=== PATIENT | female | born 1970 | race Caucasian/White ===

== ENCOUNTER 2017-08-26 10:00 | Emergency (ER) | payer BC, MEDICARE ==
--- NOTE | 2017-08-26 10:22 | EDM.PDOC ---
ED HPI GENERAL MEDICAL PROBLEM - General Chief Complaint: Respiratory Problem Stated Complaint: CHEST PAIN Time Seen by Provider: 08/26/17 10:10 Source of Information: Reports: Patient, RN History Limitations: Reports: No Limitations - History of Present Illness INITIAL COMMENTS - FREE TEXT/NARRATIVE: 47 yr female presents with right sided chest pain, started at 1;30 am. This pain is intermittent and points to 3rd, 4th IC midline area where the pain is. States she did take some ASA at home. She has a history of Alpha 1 tripsen deficiency. She does have a port to the right upper chest. 10 Pain Score (Numeric/FACES): 10 - Related Data Allergies Allergy/AdvReac Type Severity Reaction Status Date / Time amlodipine [From Norvasc] Allergy Cannot Verified 08/26/17 10:20 Remember lisinopril Allergy Itching Verified 08/26/17 10:20 montelukast [From Singulair] Allergy Cannot Verified 08/26/17 10:20 Remember theophylline Allergy Nausea and Verified 08/26/17 10:20 Vomiting tramadol Allergy Cannot Verified 08/26/17 10:20 Remember Home Meds: Home Meds Budesonide/Formoterol [Symbicort 160-4.5 Mcg Inhaler] 2 puff INH BID 06/24/13 [ History] Metoprolol Succinate [Toprol XL] 50 mg PO BID 06/24/13 [History] Omeprazole 20 mg PO ACBREAKFAST 06/24/13 [History] Tiotropium [Spiriva Handihaler] 1 cap INH DAILY 06/24/13 [History] Acetaminophen/Codeine [Tylenol with Codeine No.3 300MG/30MG] 1 - 2 tab PO Q4H PRN 07/20/16 [History] Albuterol Sulfate 2.5 mg IH Q4HR PRN 07/20/16 [History] Wtyft-2-Ilmwisebak Inhibitor [Aralast C[employer] Administrator] 500 mg IV WEEKLY 07/20/16 [History] Losartan Potassium 25 mg PO DAILY 07/20/16 [History] Cyclobenzaprine HCl 10 mg pe PO TID 08/26/17 [History] Hydrochlorothiazide 25 mg PO DAILY 08/26/17 [History] Past Medical History HEENT History: Reports: Other (See Below) Other HEENT History: Right eye swallen shut from bug bite. - Edema to eye lid and right side face to ear. 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: Musculoskeletal History: Reports: Back Pain, Chronic Neurological History: Reports: None Psychiatric History: Reports: None Endocrine/Metabolic History: Reports: None Hematologic History: Reports: None Immunologic History: Reports: None Oncologic (Cancer) History: Reports: None Dermatologic History: Reports: None - Past Surgical History GI Surgical History: Reports: Appendectomy Female Surgical History: Reports: Hysterectomy Social & Family History - Family History Family Medical History: Noncontributory - Caffeine Use Caffeine Use: Reports: None ED ROS GENERAL - Review of Systems Review Of Systems: See Below Constitutional: Reports: No Symptoms HEENT: Reports: No Symptoms Respiratory: Reports: No Symptoms Cardiovascular: Reports: Chest Pain GI/Abdominal: Reports: No Symptoms : Reports: No Symptoms Musculoskeletal: Reports: Other (history of back pain) Skin: Reports: No Symptoms Neurological: Reports: No Symptoms Psychiatric: Reports: No Symptoms ED EXAM, GENERAL - Physical Exam Exam: See Below Exam Limited By: No Limitations General Appearance: Alert, No Apparent Distress Ears: Hearing Grossly Normal Nose: Normal Inspection Throat/Mouth: Normal Inspection, No Airway Compromise Head: Atraumatic, Normocephalic Neck: Normal Inspection, Supple, Non-Tender Respiratory/Chest: Lungs Clear, Decreased Breath Sounds Cardiovascular: Normal Peripheral Pulses, Regular Rate, Rhythm, No Edema GI/Abdominal: Soft, Non-Tender (Female) Exam: Deferred Rectal (Female) Exam: Deferred Back Exam: Normal Inspection Extremities: Normal Inspection, Normal Range of Motion, Normal Capillary Refill Neurological: Alert, Oriented, Normal Cognition, Normal Gait Psychiatric: Normal Affect, Normal Mood Skin Exam: Warm, Dry, Normal Color Lymphatic: No Adenopathy Course - Vital Signs Last Recorded V/S: Last Vital Signs Temp 98 F 08/26/17 10:34 Pulse 84 08/26/17 10:34 Resp 20 08/26/17 10:34 BP 125/82 08/26/17 10:34 Pulse Ox 100 08/26/17 10:34 - Orders/Labs/Meds Labs: Laboratory Tests 08/26/17 08/26/17 08/26/17 Range/Units 10:30 10:30 10:30 WBC 8.7 (4.0-11.0) K/uL RBC 3.48 L (3.80-5.80) M/uL Hgb 11.2 L (11.5-16.5) g/dL Hct 33.9 L (37.0-47.0) % MCV 97 H (76-96) fL MCH 32.2 H (27.0-32.0) pg MCHC 33.0 (31.0-35.0) g/dL RDW 12.7 (11.0-16.0) % Plt Count 223 D (150-500) K/uL MPV 9.4 (6.0-10.0) fL Neut % (Auto) 64.2 (45.0-70.0) % Lymph % (Auto) 23.1 (20.0-40.0) % [place] % (Auto) 10.6 H (3.0-10.0) % Eos % (Auto) 1.8 (1.0-5.0) % Baso % (Auto) 0.3 (0.0-0.5) % Neut # (Auto) 5.59 (2.00-7.50) K/uL Lymph # (Auto) 2.01 (1.50-4.00) K/uL [place] # (Auto) 0.92 H (0.20-0.80) K/uL Eos # (Auto) 0.16 (0.04-0.40) K/uL Baso # (Auto) 0.03 (0.02-0.10) K/uL D-Dimer, Quantitative (0-400) ng/mL Sodium 140 (136-145) mmol/L Potassium 3.8 (3.5-5.1) mmol/L Chloride 103 (98-107) mmol/L Carbon Dioxide 27.2 (21.0-32.0) mmol/L Anion Gap 13.6 (5.0-15.0) mmol/L BUN 12 D (8-26) mg/dL Creatinine 1.22 H D (0.55-1.02) mg/dL Est Cr Clr Drug Dosing 3.91 mL/min Estimated GFR (MDRD) 48 L (>60) MLS/MIN BUN/Creatinine Ratio 9.8 (6-25) Glucose 101 H (74-100) mg/dL Calcium 8.8 (8.5-10.1) mg/dL Total Bilirubin 0.5 (0.0-1.0) mg/dL AST 26 (15-37) U/L ALT 25 (12-78) U/L Alkaline Phosphatase 49 (46-116) U/L Troponin I < 0.017 (0.000-0.060) ng/mL Total Protein 7.0 (6.4-8.2) g/dL Albumin 3.5 (3.4-5.0) g/dL Globulin 3.5 (2.2-4.2) g/dL Albumin/Globulin Ratio 1.0 (0.8-2.0) 05//18 Range/Units 10:40 WBC (4.0-11.0) K/uL RBC (3.80-5.80) M/uL Hgb (11.5-16.5) g/dL Hct (37.0-47.0) % MCV (76-96) fL MCH (27.0-32.0) pg MCHC (31.0-35.0) g/dL RDW (11.0-16.0) % Plt Count (150-500) K/uL MPV (6.0-10.0) fL Neut % (Auto) (45.0-70.0) % Lymph % (Auto) (20.0-40.0) % [place] % (Auto) (3.0-10.0) % Eos % (Auto) (1.0-5.0) % Baso % (Auto) (0.0-0.5) % Neut # (Auto) (2.00-7.50) K/uL Lymph # (Auto) (1.50-4.00) K/uL [place] # (Auto) (0.20-0.80) K/uL Eos # (Auto) (0.04-0.40) K/uL Baso # (Auto) (0.02-0.10) K/uL D-Dimer, Quantitative 178 (0-400) ng/mL Sodium (136-145) mmol/L Potassium (3.5-5.1) mmol/L Chloride (98-107) mmol/L Carbon Dioxide (21.0-32.0) mmol/L Anion Gap (5.0-15.0) mmol/L BUN (8-26) mg/dL Creatinine (0.55-1.02) mg/dL Est Cr Clr Drug Dosing mL/min Estimated GFR (MDRD) (>60) MLS/MIN BUN/Creatinine Ratio (6-25) Glucose (74-100) mg/dL Calcium (8.5-10.1) mg/dL Total Bilirubin (0.0-1.0) mg/dL AST (15-37) U/L ALT (12-78) U/L Alkaline Phosphatase (46-116) U/L Troponin I (0.000-0.060) ng/mL Total Protein (6.4-8.2) g/dL Albumin (3.4-5.0) g/dL Globulin (2.2-4.2) g/dL Albumin/Globulin Ratio (0.8-2.0) - Re-Assessments/Exams Free Text/Narrative Re-Assessment/Exam: 08/26/17 12:17 47 yr female is having this right sided, pointed area of pain, intermittently, probably costochondritis. Recommend Ibuprofen or Aleve and continue with home medications. Support area with change of position. Apply ice or heat to area for about 20 min up to 5x/day. Follow-up in clinic next week. She did mention she has some concern of PE because she does home infusions. She states no concern of heart problems at this time. States she did do some extra long driving, did some lawn mowing and did some jesi. 08/27/17 13:34 LE Reviewed lab results with pt and chest x-ray, no obvious concerns. Recommend F/ U with PCP in next week or return to ER or clinic sooner if symptoms worsen. D- dimer and troponins are negative. Pt has been having these symptoms since 1:30 am, troponins should be elevated at this time. Pt discharged to self care. Offered pain medication several times and pt wants to drive herself home and refused any pain medication at this time. She will take Ibuprofen when she gets home. 08/27/17 13:39 LE Pt did have some concerns of upper GI reflux and heartburn. Will increase Prilosec to bid and recommend F/U w PCP for more work-up of this, if symptoms persist. Departure - Departure Time of Disposition: 13:00 Disposition: Home, Self-Care 01 Condition: Good Clinical Impression: Rib pain on right side - Discharge Information Instructions: Costochondritis, [id number], Ibuprofen tablets and capsules, Naproxen and naproxen sodium oral immediate-release tablets Referrals: Dion Wei MD [Primary Care Provider] - Forms: ED Department Discharge Care Plan Goals: Increase prilosec to 2 x day, take aleve 2 x day or motrin 400mg 3 x day. Ice or warm pack (wichever reliievs discomfort more) to area to area 20 minutes 5 x day as needed.
[2017-08-26 10:37] VITALS: BP 125/82
--- NOTE | 2017-08-26 17:28 | CR ---
DATE OF SERVICE: 08/26/17 CLINICAL DATA: right sided chest pain PA AND LATERAL CHEST: Comparison is made to a prior exam dated 09/28/10. There is a right-sided Jose L-Cath in place with its distal tip in the region of the right atrium. The heart size is normal. There are linear densities in both lung bases consistent with linear atelectasis or fibrosis. The lungs are otherwise clear. No pneumothorax. No pleural effusions. No areas of consolidation. [id number] [facility]
== END 2017-08-26 13:00 | disposition home or self-care (01) ==
LOC: LB.ED 10:00
DX: R07.81 Pleurodynia (principal); Z88.8 Allergy status to other drugs, medicaments and biological substances; Z88.5 Allergy status to narcotic agent; Z79.899 Other long term (current) drug therapy
CPT/HCPCS: 36415; 71046; 80053; 84484; 85025; 85379; 93005; 99283; 99285-25

== ENCOUNTER 2018-07-15 22:28 | Emergency (ER) | payer BC, MEDICARE ==
[2018-07-15] MEDS ORDERED: Ketorolac 30 MG/ML SDV IM ONE (22:51)
--- NOTE | 2018-07-15 22:57 | EDM.PDOC ---
ED HPI GENERAL MEDICAL PROBLEM - General Chief Complaint: General Stated Complaint: ABD PAIN Time Seen by Provider: 07/15/18 23:00 Source of Information: Reports: Patient History Limitations: Reports: No Limitations - History of Present Illness INITIAL COMMENTS - FREE TEXT/NARRATIVE: This patient presents to the ED for evaluation of pain. She states she had a sudden onset of sharp left back pain, just under her ribs. She has a history of kidney stones as well as other health problems. She denies dysuria, urgency, frequency, or right sided back pain. She states she had some nausea when the pain began but did not vomiting. She has not had a fever, recent illness, and denies other concerns or complaints. - Related Data Allergies Allergy/AdvReac Type Severity Reaction Status Date / Time amlodipine [From Norvasc] Allergy Cannot Verified 07/15/18 23:15 Remember lisinopril Allergy Itching Verified 07/15/18 23:15 montelukast [From Singulair] Allergy Cannot Verified 07/15/18 23:15 Remember theophylline Allergy Nausea and Verified 07/15/18 23:15 Vomiting tramadol Allergy Cannot Verified 07/15/18 23:15 Remember Home Meds: Home Meds Budesonide/Formoterol [Symbicort 160-4.5 Mcg Inhaler] 2 puff INH BID 06/24/13 [ History] Metoprolol Succinate [Toprol XL] 50 mg PO BID 06/24/13 [History] Omeprazole 20 mg PO ACBREAKFAST 06/24/13 [History] Tiotropium [Spiriva Handihaler] 1 cap INH DAILY 06/24/13 [History] Acetaminophen/Codeine [Tylenol with Codeine No.3 300MG/30MG] 1 - 2 tab PO Q4H PRN 07/20/16 [History] Albuterol Sulfate 2.5 mg IH Q4HR PRN 07/20/16 [History] Pirya-6-Pqjbgtiajp Inhibitor [Aralast Associate Automation Engineer] 500 mg IV WEEKLY 07/20/16 [History] Losartan Potassium 25 mg PO DAILY 07/20/16 [History] Cyclobenzaprine HCl 10 mg pe PO TID 08/26/17 [History] hydroCHLOROthiazide [Hydrochlorothiazide] 25 mg PO DAILY 08/26/17 [History] Lidocaine 1 patch TD ASDIRECTED 07/15/18 [History] Past Medical History HEENT History: Reports: Other (See Below) Other HEENT History: Right eye swallen shut from bug bite. - Edema to eye lid and right side face to ear. 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 Musculoskeletal History: Reports: Back Pain, Chronic Neurological History: Reports: None Psychiatric History: Reports: None Endocrine/Metabolic History: Reports: None Hematologic History: Reports: None Immunologic History: Reports: None Oncologic (Cancer) History: Reports: None Dermatologic History: Reports: None - Past Surgical History GI Surgical History: Reports: Appendectomy Female Surgical History: Reports: Hysterectomy Social & Family History - Family History Family Medical History: Noncontributory - Caffeine Use Caffeine Use: Reports: None ED ROS GENERAL - Review of Systems Review Of Systems: See Below Constitutional: Denies: Fever HEENT: Reports: No Symptoms Respiratory: Denies: Shortness of Breath, Cough Cardiovascular: Denies: Chest Pain, Lightheadedness Endocrine: Reports: No Symptoms GI/Abdominal: Reports: Nausea. Denies: Abdominal Pain, Vomiting : Reports: Flank Pain. Denies: Dysuria, Frequency, Hematuria, Urgency Musculoskeletal: Reports: No Symptoms Skin: Reports: No Symptoms Neurological: Reports: No Symptoms ED EXAM, GENERAL - Physical Exam Exam: See Below Exam Limited By: No Limitations General Appearance: Alert, WD/WN, No Apparent Distress Eye Exam: Bilateral Eye: PERRL Ears: Normal External Exam Nose: Normal Inspection Throat/Mouth: Normal Inspection Head: Atraumatic, Normocephalic Neck: Normal Inspection, Supple, Non-Tender, Full Range of Motion Respiratory/Chest: No Respiratory Distress, Lungs Clear, Normal Breath Sounds, No Accessory Muscle Use Cardiovascular: Regular Rate, Rhythm GI/Abdominal: Soft, Non-Tender, No Organomegaly Back Exam: CVA Tenderness (L) Extremities: Normal Range of Motion Neurological: Alert, Oriented Psychiatric: Normal Affect, Normal Mood Skin Exam: Warm, Dry Course - Vital Signs Last Recorded V/S: Last Vital Signs Temp 36.6 C 07/15/18 22:35 Pulse 99 07/15/18 22:35 Resp 20 07/15/18 22:35 BP 100/48 L 07/15/18 22:35 Pulse Ox 94 L 07/15/18 22:35 - Orders/Labs/Meds Orders: Active Orders 24 hr Category Date Time Status Abdomen Pelvis wo Cont [CT] Stat Exams 07/15/18 23:28 Ordered Labs: Laboratory Tests 07/15/18 Range/Units 22:57 Urine Color Yellow Urine Appearance Clear (CLEAR) Urine pH 5.5 (5.0-8.0) Ur Specific [place] <= 1.005 (1.003-1.030) Urine Protein Negative (NEGATIVE) mg/dL Urine Glucose (UA) Negative (NEGATIVE) mg/dL Urine Ketones Negative (NEGATIVE) mg/dL Urine Occult Blood Negative (NEGATIVE) Urine Nitrite Negative (NEGATIVE) Urine Bilirubin Negative (NEGATIVE) Urine Urobilinogen 0.2 (0.2-1.0) E.U./dL Ur Leukocyte Esterase Negative (NEGATIVE) Meds: Medications Discontinued Medications Generic Name Dose Route Start Last Admin Trade Name Freq PRN Reason Stop Dose Admin Ketorolac Tromethamine 30 mg 07/15/18 22:51 07/15/18 22:52 Toradol IM 07/15/18 22:52 30 mg ONETIME ONE Administration - Re-Assessments/Exams Free Text/Narrative Re-Assessment/Exam: 07/16/18 01:14 This patient presents with back pain as detailed above. A broad differential diagnosis was considered including, gall bladder disease, pancreatitis, diverticular disease, bowel obstruction, volvulus, intussusception, gastritis and peptic ulcer disease, gastro intestinal infection, inflammatory bowel disease, peritonitis, kidney stones, UTI, mesenteric lymphadenopathy, IBS. The workup in the ED is at this point negative. No definitive etiology for the patients pain is found at this point and my suspicion of an intraabdominal catastrophe or other worrisome etiology is low. Imaging studies show no acute findings. Cardiac etiologies unlikely as supported by H & P. At this time there is no indication for admission for serial exams and further workup. Patient is hemodynamically stable in the ED. She did not achieve good pain management with Toradol; however, refused narcotic medications and opted for supportive care with heat. Plan is home with 12 hour abdominal pain recheck by primary care physician or return to UR/ED at that time. Return for fevers greater than 102, increasing pain, other new symptoms develop. Abdominal pain instructions given to patient. She was given a prescription for Percocet should she choose to use them. Questions were answered. Departure - Departure Time of Disposition: 01:10 Disposition: Home, Self-Care 01 Clinical Impression: Back pain - Discharge Information *PRESCRIPTION DRUG MONITORING PROGRAM REVIEWED*: No *COPY OF PRESCRIPTION DRUG MONITORING REPORT IN PATIENT PIO: No Referrals: PCP,None [Ordering Only Provider] - Forms: ED Department Discharge Additional Instructions: Take provided Percocet as directed: 0.5-1 tablet by mouth every 4-6 hours as needed for pain. Diet and activity as tolerated. Continue all previously prescribed medications. May apply heat or cold to affected area intermittently to help with pain relief. Follow up with regular providers as needed. Call with any questions. - My Orders Last 24 Hours: My Active Orders 07/15/18 23:28 Abdomen Pelvis wo Cont [CT] Stat - Assessment/Plan Last 24 Hours: My Active Orders 07/15/18 23:28 Abdomen Pelvis wo Cont [CT] Stat
[2018-07-15 23:20] VITALS: BP 100/48
[2018-07-15] MEDS ORDERED: Acetaminophen/oxyCODONE 325-5 MG Tab ONE (23:30)
--- NOTE | 2018-07-16 15:49 | PCM.SN ---
- Free Text/Narrative Note: Lab notified provider that urine was significant for microorganisms; culture ordered. I contacted the patient at home who was doing some better with the pain. I explained the findings to her. She denies having any symptoms including fever, dysuria, urgency or frequency. Given this, I will await final culture and sensitivities before prescribing treatment. I will contact the patient in 24 hours.
--- NOTE | 2018-07-17 05:28 | CT ---
DATE OF SERVICE: 07/15/18 CLINICAL DATA: Left cva pain. UNENHANCED ABDOMEN AND PELVIC CT: Multislice acquisition through the abdomen and pelvis without IV or oral contrast was performed. Comparison is made to a prior unenhanced abdomen and pelvic CT dated 01/30/15. There are linear densities in both lung bases consistent with linear atelectasis or fibrosis. There are also emphysematous changes in both lower lungs. The unenhanced liver is fractionally visualized. No focal abnormalities within the visualized liver. The gallbladder is contracted. No calcified gallstones. There is a small hiatal hernia. There is gas noted in the distal esophagus, most likely related to GE reflux. The stomach is moderately distended with mixed density material, which is most likely ingested food. I cannot exclude a gastric outlet obstructive process. The spleen appears normal. The pancreas appears normal. The right and left adrenals appear normal. The right and left kidneys appear normal. No nephrocalcinosis or nephrolithiasis. No hydronephrosis or hydroureter. The bladder is fluid filled and appears normal. The patient is status post hysterectomy. No evidence of appendicitis. There is a moderate amount of stool present in the ascending and transverse colon. No free air. No free fluid. No dilated loops of bowel. No adenopathy. No aortic aneurysm. IMPRESSION: Findings as discussed above. [id number] [facility]
== END 2018-07-16 01:02 | disposition home or self-care (01) ==
LOC: LB.ED 22:28
DX: M54.9 Dorsalgia, unspecified (principal); J44.9 Chronic obstructive pulmonary disease, unspecified; Z88.8 Allergy status to other drugs, medicaments and biological substances; Z88.5 Allergy status to narcotic agent; Z79.899 Other long term (current) drug therapy
CPT/HCPCS: 74176; 81003; 87086; 87088; 87186; 96372; 99284-25; A9270-GY; J1885

== ENCOUNTER 2018-11-18 09:37 | Emergency (ER) | payer BC, MEDICARE ==
[2018-11-18] MEDS ORDERED: diphenhydrAMINE 50 MG/ML SDV IVPUSH ONE (10:04)
[2018-11-18] MEDS ORDERED: Ketorolac 30 MG/ML SDV IVPUSH ONE (10:04)
[2018-11-18] MEDS ORDERED: Promethazine 12.5 MG in Sodium Chloride 0.9% 50 ML IV PRN (10:04)
--- NOTE | 2018-11-18 10:11 | EDM.PDOC ---
ED HPI GENERAL MEDICAL PROBLEM - General Chief Complaint: General Stated Complaint: Headache Time Seen by Provider: 11/18/18 10:00 Source of Information: Reports: Patient History Limitations: Reports: No Limitations - History of Present Illness INITIAL COMMENTS - FREE TEXT/NARRATIVE: This patient presents to the ED for evaluation of a migraine headache. She states the headache started 2 days ago and she went to her chiropractor yesterday for a neck adjustment to treat it. This did not help and she states the headache is worse today. She states it is "all over her head" and "much worse" than her typical migraines. She tried acetaminophen with codeine and states that did not help. She has not taken any other medications for her headache but states she did restart her prednisone because she thinks her lungs are "acting up." She is complaining of nausea and photophobia with this headache. She denies a recent history of trauma. Onset: Gradual Onset Date: 11/16/18 Onset Time: 12:00 Duration: Getting Worse Location: Reports: Head Quality: Reports: Throbbing Severity: Severe Improves with: Reports: None Worsens with: Reports: None Associated Symptoms: Reports: Nausea/Vomiting Treatments INTENSIVE CARE NURSE: Reports: Other (see below) (acetaminophen with codeine) - Related Data Allergies Allergy/AdvReac Type Severity Reaction Status Date / Time amlodipine [From Norvasc] Allergy Cannot Verified 11/18/18 09:56 Remember lisinopril Allergy Itching Verified 11/18/18 09:56 montelukast [From Singulair] Allergy Cannot Verified 11/18/18 09:56 Remember theophylline Allergy Nausea and Verified 11/18/18 09:56 Vomiting tramadol Allergy Rash Verified 11/18/18 09:56 Home Meds: Home Meds Budesonide/Formoterol [Symbicort 160-4.5 Mcg Inhaler] 2 puff INH BID 06/24/13 [ History] Metoprolol Succinate [Toprol XL] 50 mg PO BID 06/24/13 [History] Omeprazole 20 mg PO ACBREAKFAST 06/24/13 [History] Tiotropium [Spiriva Handihaler] 1 cap INH DAILY 06/24/13 [History] Acetaminophen/Codeine [Tylenol with Codeine No.3 300MG/30MG] 1 - 2 tab PO Q4H PRN 07/20/16 [History] Albuterol Sulfate 2.5 mg IH Q4HR PRN 07/20/16 [History] Bpdww-2-Jqfhohioun Inhibitor [Aralast Private Secretary] 500 mg IV WEEKLY 07/20/16 [History] Losartan Potassium 25 mg PO DAILY 07/20/16 [History] Cyclobenzaprine HCl 10 mg pe PO TID 08/26/17 [History] hydroCHLOROthiazide [Hydrochlorothiazide] 25 mg PO DAILY 08/26/17 [History] Lidocaine 1 patch TD ASDIRECTED 07/15/18 [History] Past Medical History HEENT History: Reports: Other (See Below) Other HEENT History: Right eye swallen shut from bug bite. - Edema to eye lid and right side face to ear. 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 Musculoskeletal History: Reports: Back Pain, Chronic Neurological History: Reports: None Psychiatric History: Reports: None Endocrine/Metabolic History: Reports: None Hematologic History: Reports: None Immunologic History: Reports: None Oncologic (Cancer) History: Reports: None Dermatologic History: Reports: None - Past Surgical History GI Surgical History: Reports: Appendectomy Female Surgical History: Reports: Hysterectomy Social & Family History - Family History Family Medical History: Noncontributory - Caffeine Use Caffeine Use: Reports: None ED ROS GENERAL - Review of Systems Review Of Systems: See Below Constitutional: Reports: Decreased Appetite. Denies: Fever HEENT: Reports: No Symptoms Respiratory: Reports: No Symptoms, Other (states her lungs are "acting up" ) GI/Abdominal: Reports: Nausea. Denies: Abdominal Pain, Diarrhea, Vomiting Musculoskeletal: Reports: No Symptoms Skin: Reports: No Symptoms Neurological: Reports: Headache ED EXAM, GENERAL - Physical Exam Exam: See Below Exam Limited By: No Limitations General Appearance: Alert, No Apparent Distress Eye Exam: Bilateral Eye: PERRL Ears: Normal External Exam Nose: Normal Inspection Throat/Mouth: Normal Inspection Head: Atraumatic, Normocephalic Neck: Normal Inspection, Full Range of Motion Respiratory/Chest: No Respiratory Distress, Lungs Clear, Normal Breath Sounds Cardiovascular: Regular Rate, Rhythm Extremities: Normal Inspection Neurological: Alert, Oriented, Normal Cognition Psychiatric: Normal Affect, Normal Mood Skin Exam: Warm, Dry Course - Vital Signs Last Recorded V/S: Last Vital Signs Temp 36.2 C 11/18/18 10:41 Pulse 86 11/18/18 10:41 Resp 17 11/18/18 10:41 BP 119/71 11/18/18 10:41 Pulse Ox 96 11/18/18 10:41 - Orders/Labs/Meds Orders: Active Orders 24 hr Category Date Time Status Promethazine [Phenergan] 12.5 mg Med 11/18/18 10:04 Active Sodium Chloride 0.9% [Normal Saline] 50 ml IV Q6H Sodium Chloride 0.9% [Normal Saline] 1,000 ml Med 11/18/18 10:15 Active IV ASDIRECTED Medication Orders Promethazine HCl 12.5 mg/ (Sodium Chloride) 50.5 mls @ 200 mls/hr IV Q6H PRN PRN Reason: Nausea/Vomiting Last Admin: 11/18/18 10:55 Dose: 200 mls/hr Sodium Chloride (Normal Saline) 1,000 mls @ 1,000 mls/hr IV ASDIRECTED JONATHAN Last Admin: 11/18/18 10:29 Dose: 1,000 mls/hr Meds: Medications Generic Name Dose Route Start Last Admin Trade Name Freq PRN Reason Stop Dose Admin Promethazine HCl 12.5 mg/ 50.5 mls @ 200 mls/hr 11/18/18 10:04 11/18/18 10:55 Sodium Chloride IV 200 mls/hr Q6H PRN Administration Nausea/Vomiting Sodium Chloride 1,000 mls @ 1,000 mls/hr 11/18/18 10:15 11/18/18 10:29 Normal Saline IV 1,000 mls/hr ASDIRECTED JONATHAN Administration Discontinued Medications Generic Name Dose Route Start Last Admin Trade Name Freq PRN Reason Stop Dose Admin Diphenhydramine HCl 50 mg 11/18/18 10:04 11/18/18 10:35 Benadryl IVPUSH 11/18/18 10:05 50 mg ONETIME ONE Administration Diphenhydramine HCl Confirm 11/18/18 10:40 11/18/18 10:50 Benadryl Administered 11/18/18 10:41 Not Given Dose 50 mg .ROUTE .STK-MED ONE Ketorolac Tromethamine 30 mg 11/18/18 10:04 11/18/18 10:41 Toradol IVPUSH 11/18/18 10:05 30 mg ONETIME ONE Administration Ketorolac Tromethamine Confirm 11/18/18 10:39 11/18/18 10:39 Toradol Administered 11/18/18 10:40 Not Given Dose 30 mg .ROUTE .STK-MED ONE Promethazine HCl Confirm 11/18/18 10:40 11/18/18 10:50 Phenergan Administered 11/18/18 10:41 Not Given Dose 25 mg .ROUTE .STK-MED ONE - Re-Assessments/Exams Free Text/Narrative Re-Assessment/Exam: 11/18/18 11:53 This patient presents to the ED with a report of migraine headache. She denies any new symptoms and attempted some of her usual treatments prior to arrival without success. The examination was found to be normal except for photophobia. Specifically, there was a non-focal neurologic exam and no signs concerning to infectious etiologies. Clinically the life threatening diagnosis of SAH and meningitis/encephalitis were excluded. I also had no concerns for metabolic disorders which may produce a headache. After interventions as shown above, she reported good improvement and was able to be discharged to home. The patient was instructed to follow up with her primary care provider in 2-3 days to re-evaluate this episode and the current treatment regimen. She was reminded to return immediately if any worsening or new symptoms develop. She was in complete understanding and agreement with this plan and at the time of discharge had no further concerns or complaints. Departure - Departure Time of Disposition: 12:00 Disposition: Home, Self-Care 01 Condition: Good, Fair Clinical Impression: Headache - Discharge Information *PRESCRIPTION DRUG MONITORING PROGRAM REVIEWED*: Yes *COPY OF PRESCRIPTION DRUG MONITORING REPORT IN PATIENT PIO: No Instructions: Recurrent Migraine Headache, [id number] Referrals: PCP,None [Primary Care Provider] - Forms: ED Department Discharge - My Orders Last 24 Hours: My Active Orders 11/18/18 10:04 Promethazine [Phenergan] 12.5 mg Sodium Chloride 0.9% [Normal Saline] 50 ml IV Q6H 11/18/18 10:15 Sodium Chloride 0.9% [Normal Saline] 1,000 ml IV ASDIRECTED - Assessment/Plan Last 24 Hours: My Active Orders 11/18/18 10:04 Promethazine [Phenergan] 12.5 mg Sodium Chloride 0.9% [Normal Saline] 50 ml IV Q6H 11/18/18 10:15 Sodium Chloride 0.9% [Normal Saline] 1,000 ml IV ASDIRECTED
[2018-11-18] MEDS ORDERED: Sodium Chloride 0.9% 1,000 ML IV SCH (10:15)
[2018-11-18] MEDS ORDERED: Ketorolac 30 MG/ML SDV ONE (10:39)
[2018-11-18] MEDS ORDERED: Promethazine 25 MG/ML SDV ONE (10:40)
[2018-11-18] MEDS ORDERED: diphenhydrAMINE 50 MG/ML SDV ONE (10:40)
[2018-11-18 11:20] VITALS: BP 119/71; PULSE 86
== END 2018-11-18 12:05 | disposition home or self-care (01) ==
LOC: LB.ED 09:37
DX: R51 Headache (principal); J44.9 Chronic obstructive pulmonary disease, unspecified; K21.9 Gastro-esophageal reflux disease without esophagitis; Z88.5 Allergy status to narcotic agent; Z88.8 Allergy status to other drugs, medicaments and biological substances; Z79.899 Other long term (current) drug therapy
CPT/HCPCS: 96365; 96375; 99282; J1200; J1885; J2550; J7030; J7050

== ENCOUNTER → 2019-02-08 | Outpatient (CLI) | payer BC, MEDICARE | LOC: LB.CLINIC 13:39 | PROVIDERS: ATTEND Family Medicine | DX: I10 Essential (primary) hypertension (principal) | CPT/HCPCS: 36415; 80048 ==

== ENCOUNTER → 2019-03-20 | Outpatient (CLI) | payer BC, MEDICARE ==
--- NOTE | 2019-03-20 12:36 | CR ---
DATE OF SERVICE: 03/20/2019 CLINICAL DATA: Unspecified asthma, uncomplicated,Chronic obstructive pulmonary disease, un. PA AND LATERAL CHEST: Comparison is made to a prior exam dated 01/12/2019. The heart size is normal. The right-sided Port-A-Cath is unchanged in position. The lungs remain hyperexpanded. There are linear densities in both lower lungs consistent with linear atelectasis or fibrosis. The lungs are otherwise clear. No pneumothorax. No pleural effusions. [id number] [facility]
== END ==
LOC: LB.CLINIC 07:01
PROVIDERS: ATTEND Family Medicine
DX: J44.9 Chronic obstructive pulmonary disease, unspecified (principal); R09.89 Other specified symptoms and signs involving the circulatory and respiratory systems
CPT/HCPCS: 71046

== ENCOUNTER 2019-03-21 11:19 | Emergency (ER) | payer BC, MEDICARE ==
--- NOTE | 2019-03-21 11:48 | EDM.PDOC ---
ED HPI GENERAL MEDICAL PROBLEM - General Chief Complaint: Respiratory Problem Stated Complaint: CAN'T BREATH Time Seen by Provider: 03/21/19 11:30 Source of Information: Reports: Patient, RN - History of Present Illness INITIAL COMMENTS - FREE TEXT/NARRATIVE: 48 yr old female presents with shortness of breath and some chest discomfort. She has been using her inhalers, prednisone and did have Solu-Medrol 250 mg IM yesterday in the clinic. States she did have her teeth cleaned about 1 month ago and dentist did extract right lower tooth and was traumatic and was started on Penicillin at that time. She continue with some tenderness to tooth area. Significant hx of Alpha one antitrypsin deficiency. Leukocytosis may be some related to the Solu-Medrol. Diminished breath sounds to LLL. SpO2 88% with ambulation. She has been using the oxygen continuous at home and usually uses this just at hs. She does have a pulmonology appointment tomorrow. Treatments TURF KEEPER: Reports: Other (see below) Other Treatments TURF KEEPER: vicks. - Related Data Allergies Allergy/AdvReac Type Severity Reaction Status Date / Time amlodipine [From Norvasc] Allergy Cannot Verified 11/18/18 09:56 Remember lisinopril Allergy Itching Verified 11/18/18 09:56 montelukast [From Singulair] Allergy Cannot Verified 11/18/18 09:56 Remember theophylline Allergy Nausea and Verified 11/18/18 09:56 Vomiting tramadol Allergy Rash Verified 11/18/18 09:56 Home Meds: Home Meds Budesonide/Formoterol [Symbicort 160-4.5 Mcg Inhaler] 2 puff INH BID 06/24/13 [ History] Metoprolol Succinate [Toprol XL] 50 mg PO BID 06/24/13 [History] Omeprazole 20 mg PO ACBREAKFAST 06/24/13 [History] Tiotropium [Spiriva Handihaler] 1 cap INH DAILY 06/24/13 [History] Acetaminophen/Codeine [Tylenol with Codeine No.3 300MG/30MG] 1 - 2 tab PO Q4H PRN 07/20/16 [History] Albuterol Sulfate 2.5 mg IH Q4HR PRN 07/20/16 [History] Hsfed-8-Ehqosyvepk Inhibitor [Aralast Fitness Club Manager] 500 mg IV WEEKLY 07/20/16 [History] Losartan Potassium 25 mg PO DAILY 07/20/16 [History] Cyclobenzaprine HCl 10 mg pe PO TID 08/26/17 [History] hydroCHLOROthiazide [Hydrochlorothiazide] 25 mg PO DAILY 08/26/17 [History] Lidocaine 1 patch TD ASDIRECTED 07/15/18 [History] Past Medical History HEENT History: Reports: Other (See Below) Other HEENT History: Right eye swallen shut from bug bite. - Edema to eye lid and right side face to ear. 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 Musculoskeletal History: Reports: Back Pain, Chronic Neurological History: Reports: None Psychiatric History: Reports: None Endocrine/Metabolic History: Reports: None Hematologic History: Reports: None Immunologic History: Reports: None Oncologic (Cancer) History: Reports: None Dermatologic History: Reports: None - Past Surgical History GI Surgical History: Reports: Appendectomy Female Surgical History: Reports: Hysterectomy Social & Family History - Family History Family Medical History: Noncontributory - Caffeine Use Caffeine Use: Reports: None ED ROS GENERAL - Review of Systems Review Of Systems: See Below Constitutional: Reports: Weakness. Denies: Fever, Chills HEENT: Reports: No Symptoms Respiratory: Reports: Shortness of Breath, Cough, Sputum Cardiovascular: Reports: Dyspnea on Exertion, Lightheadedness GI/Abdominal: Reports: Other (abdominal fullness). Denies: Hematochezia, Melena : Reports: No Symptoms Skin: Reports: Dryness. Denies: Bruising, Pruritis Psychiatric: Reports: No Symptoms ED EXAM, GENERAL - Physical Exam Exam: See Below Exam Limited By: No Limitations General Appearance: Alert, No Apparent Distress Eye Exam: Bilateral Eye: PERRL Ears: Hearing Grossly Normal Nose: Normal Inspection Throat/Mouth: Normal Voice, No Airway Compromise Head: Atraumatic, Normocephalic Neck: Normal Inspection, Supple, Non-Tender, Full Range of Motion Respiratory/Chest: No Respiratory Distress, Other (decreased breath sounds to bases) Cardiovascular: Regular Rate, Rhythm, No Edema GI/Abdominal: Soft, Non-Tender Neurological: Alert, Oriented, Normal Cognition Psychiatric: Normal Affect, Normal Mood Skin Exam: Warm, Dry, Normal Color Lymphatic: No Adenopathy Course - Vital Signs Last Recorded V/S: Last Vital Signs Temp 97.6 F 03/21/19 14:08 Pulse 101 H 03/21/19 14:08 Resp 18 03/21/19 14:08 BP 132/80 03/21/19 14:08 Pulse Ox 95 03/21/19 14:08 - Orders/Labs/Meds Orders: Active Orders 24 hr Category Date Time Status Cardiac Monitoring [RC] .As Directed Care 03/21/19 11:44 Active EKG Documentation Completion [RC] ASDIRECTED Care 03/21/19 11:44 Active Oxygen Therapy Adult [Oxygen Therapy] [RC] ASDIRECTED Care 03/21/19 11:44 Active Labs: Laboratory Tests 03/21/19 03/21/19 03/21/19 Range/Units 11:55 11:55 11:55 WBC 20.2 H* D (4.0-11.0) K/uL RBC 3.86 (3.80-5.80) M/uL Hgb 12.3 (11.5-16.5) g/dL Hct 36.6 L (37.0-47.0) % MCV 95 (76-96) fL MCH 31.9 (27.0-32.0) pg MCHC 33.6 (31.0-35.0) g/dL RDW 13.6 (11.0-16.0) % Plt Count 225 (150-500) K/uL MPV 8.7 (6.0-10.0) fL Neut % (Auto) 87.1 H (45.0-70.0) % Lymph % (Auto) 5.6 L (20.0-40.0) % [place] % (Auto) 7.2 (3.0-10.0) % Eos % (Auto) 0.0 L (1.0-5.0) % Baso % (Auto) 0.1 (0.0-0.5) % Neut # (Auto) 17.58 H (2.00-7.50) K/uL Lymph # (Auto) 1.14 L (1.50-4.00) K/uL [place] # (Auto) 1.46 H (0.20-0.80) K/uL Eos # (Auto) 0.00 L (0.04-0.40) K/uL Baso # (Auto) 0.02 (0.02-0.10) K/uL Sodium 128 L (136-145) mmol/L Potassium 4.0 (3.5-5.1) mmol/L Chloride 89 L* (98-107) mmol/L Carbon Dioxide 29.8 D (21.0-32.0) mmol/L Anion Gap 13.2 (5.0-15.0) mmol/L BUN 20 (8-26) mg/dL Creatinine 1.22 H (0.55-1.02) mg/dL Est Cr Clr Drug Dosing 41.39 mL/min Estimated GFR (MDRD) 47 L (>60) MLS/MIN BUN/Creatinine Ratio 16.4 (6-25) Glucose 156 H D (74-100) mg/dL Lactic Acid (0.90-1.70) mmol/L Calcium 9.0 (8.5-10.1) mg/dL Troponin I < 0.017 (0.000-0.060) ng/mL TSH, Ultra Sensitive 0.044 L D (0.358-3.740) uIU/mL Urine Color Urine Appearance (CLEAR) Urine pH (5.0-8.0) Ur Specific Ot[place] (1.003-1.030) Urine Protein (NEGATIVE) mg/dL Urine Glucose (UA) (NEGATIVE) mg/dL Urine Ketones (NEGATIVE) mg/dL Urine Occult Blood (NEGATIVE) Urine Nitrite (NEGATIVE) Urine Bilirubin (NEGATIVE) Urine Urobilinogen (0.2-1.0) E.U./dL Ur Leukocyte Esterase (NEGATIVE) Urine RBC /HPF Urine WBC /HPF Ur Squamous Epith Cells /HPF Urine Bacteria /HPF 03/21/19 03/21/19 Range/Units 11:55 14:02 WBC (4.0-11.0) K/uL RBC (3.80-5.80) M/uL Hgb (11.5-16.5) g/dL Hct (37.0-47.0) % MCV (76-96) fL MCH (27.0-32.0) pg MCHC (31.0-35.0) g/dL RDW (11.0-16.0) % Plt Count (150-500) K/uL MPV (6.0-10.0) fL Neut % (Auto) (45.0-70.0) % Lymph % (Auto) (20.0-40.0) % [place] % (Auto) (3.0-10.0) % Eos % (Auto) (1.0-5.0) % Baso % (Auto) (0.0-0.5) % Neut # (Auto) (2.00-7.50) K/uL Lymph # (Auto) (1.50-4.00) K/uL [place] # (Auto) (0.20-0.80) K/uL Eos # (Auto) (0.04-0.40) K/uL Baso # (Auto) (0.02-0.10) K/uL Sodium (136-145) mmol/L Potassium (3.5-5.1) mmol/L Chloride (98-107) mmol/L Carbon Dioxide (21.0-32.0) mmol/L Anion Gap (5.0-15.0) mmol/L BUN (8-26) mg/dL Creatinine (0.55-1.02) mg/dL Est Cr Clr Drug Dosing mL/min Estimated GFR (MDRD) (>60) MLS/MIN BUN/Creatinine Ratio (6-25) Glucose (74-100) mg/dL Lactic Acid 3.75 H (0.90-1.70) mmol/L Calcium (8.5-10.1) mg/dL Troponin I (0.000-0.060) ng/mL TSH, Ultra Sensitive (0.358-3.740) uIU/mL Urine Color Yellow Urine Appearance Clear (CLEAR) Urine pH 6.5 (5.0-8.0) Ur Specific [place] 1.010 (1.003-1.030) Urine Protein Negative (NEGATIVE) mg/dL Urine Glucose (UA) Negative (NEGATIVE) mg/dL Urine Ketones Negative (NEGATIVE) mg/dL Urine Occult Blood Negative (NEGATIVE) Urine Nitrite Negative (NEGATIVE) Urine Bilirubin Negative (NEGATIVE) Urine Urobilinogen 0.2 (0.2-1.0) E.U./dL Ur Leukocyte Esterase Negative (NEGATIVE) Urine RBC Not seen /HPF Urine WBC 0-5 H /HPF Ur Squamous Epith Cells Few /HPF Urine Bacteria Few /HPF Meds: Medications Discontinued Medications Generic Name Dose Route Start Last Admin Trade Name Angel PRN Reason Stop Dose Admin Ceftriaxone Sodium Confirm 03/21/19 13:20 Rocephin Administered 03/21/19 13:21 Dose 1 gm .ROUTE .STK-MED ONE Ceftriaxone Sodium 1 gm/ 50 mls @ 100 mls/hr 03/21/19 13:07 03/21/19 13:18 Sodium Chloride IV 03/21/19 13:36 100 mls/hr ONETIME ONE Administration Sodium Chloride 1,000 mls @ 999 mls/hr 03/21/19 13:00 03/21/19 13:00 Normal Saline IV 03/21/19 14:00 999 mls/hr .BOLUS ONE Administration - Re-Assessments/Exams Free Text/Narrative Re-Assessment/Exam: 03/21/19 13:38 Labs reviewed, EKG completed, chest x-ray yesterday reviewed. Low chloride and low sodium noted and elevated WBC and elevated neutrophils. Rocephin 1 gm IV ordered, lactic acid and u/A w micro. Resp rate is improved and states improved, but hasn't been moving. Oxygen continue with 2-3 LPM n/c. Discussed labs. she has been taking Penicillin for a tooth that was extracted the end of February. She is alert, talkative and no acute distress. Will discharge to care of with Rx for Azithromycin 2 tablets today and one tablet daily for next 4 days. Return to ER if symptoms worsen, follow-up with pulmonology tomorrow as scheduled. Departure - Departure Time of Disposition: 15:30 Disposition: Home, Self-Care 01 Condition: Good Clinical Impression: Hyponatremia, Upper respiratory infection, Shortness of breath, Supplemental oxygen dependent - Discharge Information *PRESCRIPTION DRUG MONITORING PROGRAM REVIEWED*: Not Applicable *COPY OF PRESCRIPTION DRUG MONITORING REPORT IN PATIENT PIO: Not Applicable Instructions: Hyponatremia, [id number], Upper Respiratory Infection, Adult, [id number] Referrals: PCP,None [Primary Care Provider] - Forms: ED Department Discharge Care Plan Goals: Follow up with cashier office tomorrow as scheduled. Return if symptoms worsen or with any other questions or concerns. Take medications as prescribed. Continue taking the prednisone. Sepsis Event Note - Evaluation Sepsis Screening Result: No Definite Risk - Focused Exam Vital Signs: Vital Signs Temp Pulse Resp BP Pulse Ox 03/21/19 14:08 97.6 F 101 H 18 132/80 95 03/21/19 13:08 97.8 F 96 16 130/77 95 03/21/19 11:31 99.3 F 120 H 28 H 142/99 H 99 Date Exam was Performed: 03/21/19 Time Exam was Performed: 20:25 - My Orders Last 24 Hours: My Active Orders 03/21/19 11:44 Cardiac Monitoring [RC] .As Directed EKG Documentation Completion [RC] ASDIRECTED Oxygen Therapy Adult [Oxygen Therapy] [RC] ASDIRECTED - Assessment/Plan Last 24 Hours: My Active Orders 03/21/19 11:44 Cardiac Monitoring [RC] .As Directed EKG Documentation Completion [RC] ASDIRECTED Oxygen Therapy Adult [Oxygen Therapy] [RC] ASDIRECTED Plan: URI and hyponatremia: 48 yr old female presents with shortness of breath and some chest discomfort. She has been using her inhalers, prednisone and did have Solu-Medrol 250 mg IM yesterday. Leukocytosis may be some related to the Solu-Medrol. Diminished breath sounds to LLL. SpO2 88% with ambulation. continue with oxygen at home and in transfer. Follow-up with pulmonology tomorrow as scheduled. Recommend use of sodium tablets or added salt to diets as needed. One liter of Nacl given today and rocephin 1 gm IV given. is with pt. Recommend to continue with medications as at home and add Azithromycin 2 tablets today and then 1 tablet daily for 4 days. RTC or ER if symptoms worsen.
[2019-03-21] MEDS ORDERED: Azithromycin 250 MG Tab ONE (12:00)
[2019-03-21] MEDS ORDERED: Sodium Chloride 0.9% 1,000 ML IV ONE (13:00)
[2019-03-21] MEDS ORDERED: cefTRIAXone 1 GM in Sodium Chloride 0.9% 50 ML IV ONE (13:07)
[2019-03-21] MEDS ORDERED: cefTRIAXone 1 GM Vial ONE (13:20)
[2019-03-21 14:09] VITALS: BP 132/80; PULSE 101
[2019-04-09] MEDS ORDERED: cefTRIAXone 1 GM in Sodium Chloride 0.9% 50 ML IV ONE (09:19)
[2019-04-09] MEDS ORDERED: Sodium Chloride 0.9% 1,000 ML IV SCH (09:30)
== END 2019-03-21 15:30 | disposition home or self-care (01) ==
LOC: LB.ED 11:19
DX: E87.1 Hypo-osmolality and hyponatremia (principal); J06.9 Acute upper respiratory infection, unspecified; R06.02 Shortness of breath; Z99.81 Dependence on supplemental oxygen; J44.9 Chronic obstructive pulmonary disease, unspecified; Z79.899 Other long term (current) drug therapy; Z90.49 Acquired absence of other specified parts of digestive tract; Z90.710 Acquired absence of both cervix and uterus; Z88.5 Allergy status to narcotic agent; Z88.8 Allergy status to other drugs, medicaments and biological substances
CPT/HCPCS: 36415; 80048; 81001; 83605; 84443; 84484; 85025; 93005; 96361; 96365; 99285; A9270; J0696; J7030; J7050

== ENCOUNTER 2021-11-22 10:56 | Emergency (ER) | payer MEDICARE, OTHER ==
[2021-11-22] MEDS ORDERED: Ketorolac 60 MG/2 ML SDV IM ONE (12:32)
[2021-11-22 12:39] VITALS: BP 141/76; PULSE 100
[2021-11-22] MEDS ORDERED: Ketorolac 10 MG Tab ONE (13:00)
[2021-11-22 13:09] LABS: ESTIMATED GFR 81 mL/min (>60)
== END 2021-11-22 14:05 | disposition home or self-care (01) ==
LOC: LB.ED 10:56
DX: S22.31XA Fracture of one rib, right side, initial encounter for closed fracture (principal); J45.909 Unspecified asthma, uncomplicated; K21.9 Gastro-esophageal reflux disease without esophagitis; Z88.8 Allergy status to other drugs, medicaments and biological substances; Z88.5 Allergy status to narcotic agent; Z79.899 Other long term (current) drug therapy; Z90.49 Acquired absence of other specified parts of digestive tract; Z90.710 Acquired absence of both cervix and uterus; Z87.891 Personal history of nicotine dependence
CPT/HCPCS: 36415; 71250; 80053; 81001; 85025; 96372; 99281; 99284; A9270-GY; J1885